=== PATIENT | male | born 2005 | race Caucasian/White ===

== ENCOUNTER 2023-11-14 00:36 | Emergency (ER) | payer OTHER ==
[~2023-11-14] VITALS: Ht 182.9 cm; Wt 90.9 kg
[2023-11-14 00:40] VITALS: TEMP 98
[2023-11-14] MEDS ORDERED: NS 1,000 ML IV ONE (01:15)
[2023-11-14 01:16] LABS: BASO % 0.3 % (0.0-2.0); EOS # 0.2 K/mm3 (0.0-0.7); EOS % 2.1 % (0.0-4.0); GRAN # 5.6 K/mm3 (1.4-6.5); GRAN % 63.3 % (42.2-75.2); HEMATOCRIT 48.5 % (36.0-47.0); HEMOGLOBIN 16.6 g/dl (12.5-16.1); LYMPH # 2.4 K/mm3 (1.2-3.4); LYMPH % 27.4 % (20.0-51.0); MEAN CELL VOLUME 90 fl (80.0-95.0); MEAN CORPUSCULAR HEMOGLOBIN 31 pg (26-32); MEAN CORPUSCULAR HGB CONC 34 g/dl (33.0-37.0); MONO # 0.5 K/mm3 (0.1-0.6); MONO % 5.7 % (1.7-9.3); PLATELET COUNT 272 K/mm3 (130-400); REDCELL DISTRIBUTION WIDTH-CV 11.8 % (11.5-14.5)
[2023-11-14 01:28] LABS: ALANINE AMINOTRANSFERASE 30 U/L (0-55); ALBUMIN 4.4 g/dL (3.5-5.0); ALKALINE PHOSPHATASE 111 U/L (40-150); ANION GAP 11 mmol/L (7-16); AST,SGOT 25 U/L (5-34); BILIRUBIN,TOTAL 0.4 mg/dL (0.2-1.2); BLOOD UREA NITROGEN 15 mg/dL (9-21); CALCIUM 9.8 mg/dL (8.4-10.2); CHLORIDE 106 mEq/L (98-107); CREATININE, serum 1.19 mg/dL (0.72-1.25); GLUCOSE 91 mg/dL (70-99); POTASSIUM 4.2 mEq/L (3.5-4.5); SODIUM 141 mEq/L (136-145); TOTAL PROTEIN 7.5 g/dl (6.2-8.1)
[2023-11-14 01:32] LABS: ALCOHOL(ethanol),MEDICAL < 10 mg/dL (0-10); SALICYLATE < 5.0 mg/dL (15.0-30.0)
[2023-11-14 02:29] LABS: URINE APPEARANCE CLEAR (CLEAR/HAZY); URINE BLOOD NEGATIVE (NEGATIVE); URINE COLOR YELLOW (YELLOW); URINE GLUCOSE NEGATIVE (NEGATIVE); URINE KETONE NEGATIVE (NEGATIVE); URINE NITRATE NEGATIVE (NEGATIVE); URINE PROTEIN(semi-quant) TRACE (NEGATIVE)
[2023-11-14 02:55] LABS: COLLECTION METHOD CLEAN CATCH; TRICYCLIC ANTIDEPRESS URINE NEGATIVE (NEGATIVE)
[2023-11-14 09:00] VITALS: BP 118/55; PULSE 78
== END 2023-11-14 09:00 ==
LOC: COL.ER 00:36
PROVIDERS: Emergency Medicine
DX: R45.851 Suicidal ideations (principal)
CPT/HCPCS: J7030